=== PATIENT | female | born 1970 | race Caucasian/White ===

== ENCOUNTER 2022-06-05 11:45 | Observation (INO) | payer OTHER, SELFPAY ==
[2022-06-05] VITALS (36 sets, daily range): BP systolic 122–135; BP diastolic 64–88; PULSE 65–96; RESP 13–32; TEMP 35.9–36.6; O2SAT 94–100
--- NOTE | ~2022-06-05 | XR_ITS ---
EXAMINATION: XR chest 1V portable 06/05/2022 12:40 INDICATION: Cough and wheezing PROCEDURE: AP portable chest COMPARISON: 04/27/2022 FINDINGS: The lungs are clear. The cardiomediastinal silhouette is within normal limits. There are no pleural effusions. There is no pneumothorax suspected. IMPRESSION: 1: NO ACUTE CARDIOPULMONARY DISEASE. Reviewed, dictated and finalized at location A.
--- NOTE | 2022-06-05 11:53 | ECG_ITS ---
Measurements Intervals [place] Rate: 67 P: 49 ND: 136 QRS: 52 QRSD: 106 T: 13 QT: 380 QTc: 401 Interpretive Statements SINUS RHYTHM NO PREVIOUS ECG AVAILABLE FOR COMPARISON Electronically Signed On 06-06-2022 11:24:14 CDT by Padmini Lewis M.D.
--- NOTE | 2022-06-05 11:58 | ED.GENADULT ---
HPI - General Adult General Chief complaint: Shortness of Breath/Dyspnea Stated complaint: cough Time Seen by Provider: 06/05/22 11:49 Source: RN notes reviewed History of Present Illness HPI narrative: Patient presents emergency room from home for shortness of breath. Patient states she has been short of breath for the past 3 days states has been associate with a cough this been nonproductive. Patient states she has a history of COPD and is noted that she has been wheezing she states that she still does smoke cigarettes she denies any fevers or chills chest pain abdominal pain nausea or vomiting. States she went to another ER 2 days ago did not have a chest x-ray at that time was discharged and had gone to urgent care yesterday and was started on prednisone and Z-Judah which she is taken a dose of with minimal relief Related Data Home Medications Medication Instructions Recorded Confirmed aspirin 81 mg chewable tablet 81 mg PO DAILY 12/30/21 atorvastatin 40 mg tablet 40 mg PO DAILY 12/30/21 celecoxib 200 mg capsule 200 mg PO DAILY 12/30/21 multivitamin 1 tablet PO DAILY 12/30/21 Allergies Allergy/AdvReac Type Severity Reaction Status Date / Time meperidine [From Demerol] Allergy Severe swelling Verified 06/05/22 11:51 Review of Systems Review of Systems: Gen.: Denies fevers or chills ENT: Denies congestion Respiratory: See HPI CV: Denies chest pain or palpitations GI: Denies abdominal pain nausea, emesis or diarrhea Musculoskeletal: Denies back pain or muscle pain Neuro: Denies numbness, tingling, weakness or focal weakness Skin: Denies rash Except as documented, all other systems reviewed and negative [facility] Past Medical History Medical History (Updated 06/05/22 @ 15:57 by Marvin Resendiz DO) Cervical polyp COPD (chronic obstructive pulmonary disease) Encounter for prophylactic removal of fallopian tube ectopic Ovarian cyst Surgical History Surgical History History of dilation and curettage diagnostic hysteroscopy; D&C - Postmenopausal bleeding History of tubal ligation Hx of cholecystectomy Family History Family History Other Diabetes mellitus Hypertension Kidney disease Malignant tumor of cervix Malignant tumor of ovary Social History Social History (Reviewed 06/05/22 @ 13:23 by AMMY Muñoz Smoking packs per day: 1 Smoking cigarettes per day: 20.0 Smoking status: Current some day smoker Tobacco type: cigarettes Alcohol intake: never Substance use: never Substance use type: does not use Gender identity (if verbalized by the patient): Female Sexual Orientation (if Verbalized by the Patient): Straight or Heterosexual Spiritual care concerns: No Exam Narrative: APPEARANCE: No acute distress, nontoxic, resting in bed EYES: EOMI HEENT: Normocephalic, atraumatic, OMM RESPIRATORY: No respiratory distress wheezing throughout the bilateral lung fried with decreased breath sounds in the bases no rhonchi CARDIOVASCULAR: Regular rate and rhythm without murmurs rubs or gallops. ABDOMINAL: Soft, nontender, nondistended, no rebound or guarding MUSCULOSKELETAl: Moves all extremities. No clubbing, cyanosis or edema. NEURO: Awake and alert. Following commands, speech normal, no focal deficits SKIN:: Warm, dry. No rashes lesions or abrasions PSYCHIATRIC: Normal affect/mood, Course Course Emergency Course: Discussed with patient states she has been on azithromycin and prednisone for 2 days Following breathing treatments patient still continues have some wheezing throughout the lung fried will admit at this time as patient has failed outpatient treatment Cussed with AMILCAR Darnell for Dr. Manrique agrees with admission Discussed with patient and family results of workup and diagnosis. Discussed need for admission. Patient and family understand and agree
[2022-06-05] MEDS: ALBUTEROL SULFATE NEB 2.5 MG/3 ML INH 5 MG INHALATION ×3 (12:03→20:19)
[2022-06-05 12:04] LABS: Basophils Absolute Auto 0.1 K/mm3 (0.0-0.1); Basophils Percent Auto 0.6 % (0.2-1.2); Eosinophils Absolute Auto 0.1 K/mm3 (0-0.3); Hematocrit 45.1 % (37.0-47.0); Hemoglobin 15.1 g/dL (12.0-15.0); Immature Granulocyte Absolute 0.04 K/mm3 (0.00-0.031); Immature Granulocyte Percent A 0.4 % (0-0.5); Lymphocytes Absolute Auto 3.33 K/mm3 (0.9-3.2); Lymphocytes Percent Auto 30.2 % (18.3-44.2); Mean Corpuscular HGB Conc 33.5 g/dl (32-36); Mean Corpuscular Hemoglobin 32.7 pg (26-34); Mean Corpuscular Volume 97.6 fl (80-100); Mean Platelet Volume 8.9 fl (7.4-10.4); Monocytes Absolute Auto 0.9 K/mm3 (0.1-0.6); Monocytes Percent Auto 8.2 % (2.6-8.5); Neutrophils Absolute Auto 6.6 K/mm3 (1.3-6.7); Neutrophils Percent Auto 59.6 % (45.5-73.1); Platelet Count Result 230 k/mm3 (150-375); Red Blood Count 4.62 M/mm3 (4.2-5.4); Red Cell Distribution Width 13.2 % (11.5-14.5)
[2022-06-05] MEDS: IPRATROPIUM BR 0.02% INH SOLN 0.5 MG/2.5 ML VIAL INHALATION ×3 (12:04→20:19)
[2022-06-05] MEDS: methylPREDNISolone SOD SUCC 125 MG VIAL IV PUSH (12:05)
[2022-06-05 12:14] LABS: Alanine Aminotransferase 35 U/L (6-35); Albumin Level 4.3 g/dL (3.5-5.1); Alkaline Phosphatase 100 U/L (38-126); Anion Gap 7 mmol/L (8-16); Aspartate Amino Transferase 31 U/L (14-36); Bilirubin,Total 0.4 mg/dL (0.2-1.3); Blood Urea Nitrogen 13 mg/dL (7-17); Calcium 9.3 mg/dL (8.4-10.2); Carbon Dioxide 29 mmol/L (22-30); Chloride 104 mmol/L (98-107); Estimated CRCL calculation 77 ml/min; Estimated Glomerular Filt Rate > 60; Glucose 120 mg/dL (65-110); Potassium 3.9 mmol/L (3.4-5.0); Sodium 140 mmol/L (137-145)
[2022-06-05 15:13] LABS: SARS-CoV-2 RNA PCR Negative
--- NOTE | 2022-06-05 17:00 | PM.IMHP ---
H&P: HPI History of Present Illness Date/Time: 06/05/22 17:00 Chief Complaint: Shortness of breath. Narrative: This is a 51-year-old female smoker with COPD who presented to the ED for evaluation of shortness of breath. She is not on inhalers at home and is typically able to do every day-to-day activities without much issue with regards to her breathing. Over the last 3 days however she has developed a nonproductive cough, wheezing, and progressive dyspnea on lesser and lesser exertion. Her chest feels tight, as though she cannot get in a deep breath. She also endorses frontal headache, sinus congestion, occasional rhinorrhea, and mild sore throat. Several days ago she was prescribed azithromycin started on a prednisone taper though unfortunately her symptoms have not improved and she came in today for evaluation. She was afebrile on arrival to the ED in her workup has really been unremarkable. She was given a dose of IV Solu-Medrol and DuoNebs with some improvement however she continues to wheeze and she is being admitted in this setting for COPD exacerbation. Her is also smoker and he has had similar symptoms. She has not had any known exposure to COVID. She is not on inhalers at home and does not have a nebulizer at home. No fever, chills, or sweats. No nausea, vomiting, or diarrhea. No exertional chest pain, pleuritic pain, or lower extremity edema. Review of Systems Review of Systems: Twelve systems were reviewed and are negative except for as per HPI. [facility] Past Medical History Medical History (Updated 06/05/22 @ 21:12 by Carie Campos PA-C) Chronic obstructive pulmonary disease Ovarian cyst Tobacco dependence Surgical History Surgical History (Updated 06/05/22 @ 16:26 by Carie Campos PA-C) History of cholecystectomy History of dilation and curettage Diagnostic hysteroscopy and D&C for post-menopausal bleeding- benign cervical polyp. History of salpingectomy For ectopic . History of tubal ligation Family History Family History Other Diabetes mellitus Hypertension Kidney disease Malignant tumor of cervix Malignant tumor of ovary Social History Social History (Updated 06/05/22 @ 21:10 by Carie Campos PA-C) Social History: Surrogate decision maker: Trip Staples, spouse. Code status: Full code. Smoking packs per day: 1 Smoking cigarettes per day: 20.0 Years smoked: 31 Smoking pack-years: 31.00 Smoking status: Current every day smoker Tobacco type: cigarettes Alcohol intake: never Substance use: never Substance use type: does not use Spiritual care concerns: No Meds Home Medications and Allergies Home Medications Medication Instructions Recorded Confirmed Type aspirin 81 mg chewable tablet 81 mg PO DAILY 12/30/21 06/05/22 History atorvastatin 40 mg tablet 40 mg PO DAILY 12/30/21 06/05/22 History celecoxib 200 mg capsule 200 mg PO DAILY 12/30/21 06/05/22 History multivitamin 1 tablet PO DAILY 12/30/21 06/05/22 History Allergies Allergy/AdvReac Type Severity Reaction Status Date / Time meperidine [From Demerol] Allergy Severe swelling Verified 06/05/22 17:36 Vital Signs Vital Signs - 24 hr 06/05/22 11:48 06/05/22 11:52 06/05/22 12:00 Temperature 97.8 F Pulse Rate 79 90 77 Respiratory Rate 26 H 18 Blood Pressure 129/88 Pulse Oximetry 99 Oxygen Delivery Room Air 06/05/22 12:10 06/05/22 13:18 06/05/22 11:56 Temperature Pulse Rate 73 72 Respiratory Rate 16 20 Blood Pressure Pulse Oximetry 97 99 Oxygen Delivery Room Air 06/05/22 12:00 06/05/22 12:03 06/05/22 12:15 Temperature Pulse Rate 69 68 76 Respiratory Rate 26 H 29 H 17 Blood Pressure 132/78 Pulse Oximetry 98 100 99 Oxygen Delivery 06/05/22 12:17 06/05/22 12:30 06/05/22 12:32 Temperature Pulse Rate 96 85 76 Respiratory Rate 32 H 25 H 16 Blood Press
--- NOTE | 2022-06-05 17:33 | ADMGEN ---
This patient, Ara Staples, was admitted to 2 Medical Room 241-01. Patient/family oriented to hospital policies and general routines including ID bracelet, bed and alarms, visiting hours, pain management, procedures, bathroom and other care routines, personal items, smoking policy, room service/diet, and visiting hours. Information on how to activate the Rapid Response Team has been discussed. Patient/Family are encouraged to report perceived risks to care and to ask questions if they do not understand what they are told or what they should do.
[2022-06-05] MEDS: methylPREDNISolone SOD SUCC 125 MG VIAL 60 MG IV PUSH (21:44)
[2022-06-06] VITALS (7 sets, daily range): BP systolic 110–115; BP diastolic 60–66; PULSE 63–72; RESP 16–20; TEMP 36.6–36.7; O2SAT 95
--- NOTE | 2022-06-06 | ECHO_ITS ---
Patient Info Name: Ara Staples Age: 51 years : 1970 Gender: Female Ht: 66 in Wt: 222 lbs BSA: 2.21 m2 HR: 67 bpm BP: 110 / 60 mmHg Heart Rhythm: Sinus Rhythm Technical Quality: Fair Exam Date: 06/06/2022 4:04 PM Exam Location: [facility] Patient Status: Outpatient Admit Date: 06/05/2022 Staff Ordering Physician: Iván Elena Freelance Graphic Designer: Ana Louis RDCS Attending Provider: Tommie Ferraro MD Referring Physician: Ulices CALVILLO; Exam Type: CA echo doppler color flow Study Info Indications - bilateral lower extremity edema Complete two-dimensional, color flow and Doppler transthoracic echocardiogram is performed. Summary 1. Complete two-dimensional, color flow and Doppler transthoracic echocardiogram is performed. 2. Left ventricular systolic function is normal, estimated at 65-70%. 3. Right ventricular systolic function is normal. 4. No significant valvular disease. Left Ventricle Left ventricular chamber dimension is normal. Left ventricular systolic function is normal, estimated at 65-70%. There is no increased left ventricular wall thickness. The left ventricular diastolic function is normal. Right Ventricle Right ventricular chamber dimension is normal. Right ventricular systolic function is normal. Left Atria Left atrial chamber dimension is normal. Right Atria Right atrial chamber dimension is normal. Atrial Septum Intact interatrial septum visualized by color flow imaging. Aortic Valve The aortic valve is not well visualized. There is mild aortic valve sclerosis. There is no aortic valve stenosis. There is no aortic valve regurgitation. Pulmonic Valve The pulmonic valve is not well visualized. There is trace pulmonic regurgitation. Mitral Valve The mitral valve has normal leaflets. There is no mitral valve stenosis. There is no mitral valve regurgitation. Tricuspid Valve The tricuspid valve leaflets are not well visualized. There is mild tricuspid valve regurgitation. Pericardium/Pleural There is no pericardial effusion. Inferior Vena Cava Normal inferior vena cava with >50% collapse upon inspiration consistent with Empty right atrial pressure, 3 mmHg. Aorta The aortic root size at the sinus of Valsalva is normal. Left Ventricular Outflow Tract Name Value Normal LVOT 2D LVOT Diameter 2.1 cm LVOT Doppler LVOT Peak Gradient 6 mmHg LVOT Mean Gradient 3 mmHg LVOT VTI 26 cm LVOT VTI/AV VTI Ratio 0.9 LVOT Stroke Volume 87 ml LVOT CO 5.7 l/min LVOT CI 2.6 l/min/m2 Pulmonic Valve Name Value Normal RVOT Doppler RVOT Peak Gradient
[2022-06-06] MEDS: ALBUTEROL SULFATE NEB 2.5 MG/3 ML INH 5 MG INHALATION ×3 (01:56→12:58)
[2022-06-06] MEDS: IPRATROPIUM BR 0.02% INH SOLN 0.5 MG/2.5 ML VIAL INHALATION ×3 (01:57→12:58)
[2022-06-06] MEDS: methylPREDNISolone SOD SUCC 125 MG VIAL 60 MG IV PUSH (05:02)
[2022-06-06 05:16] LABS: Basophils Percent Auto 0.2 % (0.2-1.2); Hematocrit 40.2 % (37.0-47.0); Hemoglobin 13.7 g/dL (12.0-15.0); Immature Granulocyte Absolute 0.12 K/mm3 (0.00-0.031); Immature Granulocyte Percent A 0.8 % (0-0.5); Lymphocytes Percent Auto 8.4 % (18.3-44.2); Mean Corpuscular HGB Conc 34.1 g/dl (32-36); Mean Corpuscular Hemoglobin 32.4 pg (26-34); Mean Platelet Volume 10.6 fl (7.4-10.4); Monocytes Absolute Auto 0.3 K/mm3 (0.1-0.6); Monocytes Percent Auto 2.1 % (2.6-8.5); Neutrophils Absolute Auto 12.7 K/mm3 (1.3-6.7); Neutrophils Percent Auto 88.5 % (45.5-73.1); Platelet Count Result 222 k/mm3 (150-375); Red Blood Count 4.23 M/mm3 (4.2-5.4); White Blood Count 14.4 K/mm3 (4.5-10.0)
[2022-06-06 05:30] LABS: Anion Gap 10 mmol/L (8-16); Blood Urea Nitrogen 20 mg/dL (7-17); Calcium 8.9 mg/dL (8.4-10.2); Carbon Dioxide 27 mmol/L (22-30); Chloride 101 mmol/L (98-107); Estimated CRCL calculation 98 ml/min; Estimated Glomerular Filt Rate > 60; Glucose 146 mg/dL (65-110); Potassium 4.4 mmol/L (3.4-5.0); Sodium 138 mmol/L (137-145)
--- NOTE | 2022-06-06 06:56 | PM.IMPN ---
Progress Note: A&P Assessment and Plan (1) COPD exacerbation: Code(s): J44.1 - Chronic obstructive pulmonary disease with (acute) exacerbation Status: Acute Assessment and Plan: Reports cough, wheezes and shortness of breath Chest xray does not appear to have infection Solumedrol titrated down to 40mg IV BID Smoking education Neb treatments (2) Upper respiratory infection: Code(s): J06.9 - Acute upper respiratory infection, unspecified Status: Acute Assessment and Plan: Continue azithromycin No evidence of pneumonia on chest x-ray SARS-CoV-2 by PCR was negative. WBC elevated at 14.4, however, could be trending up from the steroids Continue to trend labs (3) Tobacco dependence: Code(s): F17.200 - Nicotine dependence, unspecified, uncomplicated Status: Acute Assessment and Plan: Smoking cessation is imperative in was discussed. Unfortunately her is also a smoker and neither of them seem motivated. She declines the need for nicotine patch at this time. Time Spent With Patient Time with patient: Greater than 35 minutes Subjective Date/time seen: 06/06/22 Interval history: 06/06/22 06/05/22? 17:00 This is a 51-year-old female smoker with COPD who presented to the ED for evaluation of shortness of breath. She is not on inhalers at home and is typically able to do every day-to-day activities without much issue with regards to her breathing.? Over the last 3 days however she has developed a nonproductive cough, wheezing, and progressive dyspnea on lesser and lesser exertion. Her chest feels tight, as though she cannot get in a deep breath. She also endorses frontal headache, sinus congestion, occasional rhinorrhea, and mild sore throat. Several days ago she was prescribed azithromycin started on a prednisone taper though unfortunately her symptoms have not improved and she came in today for evaluation. She was afebrile on arrival to the ED in her workup has really been unremarkable.? She was given a dose of IV Solu-Medrol and DuoNebs with some improvement however she continues to wheeze and she is being admitted in this setting for COPD exacerbation. Her is also smoker and he has had similar symptoms. She has not had any known exposure to COVID. She is not on inhalers at home and does not have a nebulizer at home. No fever, chills, or sweats. No nausea, vomiting, or diarrhea. No exertional chest pain, pleuritic pain, or lower extremity edema. Review of Systems Review of Systems: All systems reviewed & are unremarkable except as noted in HPI and below Exam Const: General: cooperative, healthy appearing, no acute distress, well developed, alert, awake and well nourished Nutritional Appearance: well nourished Orientation/consciousness: patient oriented x3 Limitations: no limitations HENMT: Head: normal to inspection Ears: hearing grossly normal bilaterally Face/Nose/Sinus: Normal external nose present Mouth: Yes Normal oral and palatal mucosa present, Yes lip normal and Yes tongue normal Teeth and gingiva: abnormal tooth and associated gingiva and poor dentition Eyes: General: appearance normal, both eyes and all related structures Neck: Neck: normal visual inspection, full ROM, trachea midline and supple Chest: Chest palpation & inspection: normal inspection of the chest Resp: Effort & Inspection: normal respiratory effort and able to speak in complete sentences Auscultation: clear to auscultation bilaterally Cardio: Jugular venous distension: no JVD Rate: regular rate Rhythm: regular rhythm Heart sounds: S1 normal heart sound present and S2 normal heart sound present Peripheral pulses: Peripheral pulses 2+ throughout GI: Inspection: normal to inspection GI Palp: Yes Soft to palpation and No Tenderness to palpation present (GI) Auscultation: normal bowel sounds Skin: General skin e
[2022-06-06] MEDS: ASPIRIN 81 MG CHEWABLE TABLET PO (09:15)
[2022-06-06] MEDS: AZITHROMYCIN 250 MG TABLET 500 MG PO (09:15)
[2022-06-06] MEDS: CELECOXIB 200 MG CAPSULE PO (09:16)
[2022-06-06] MEDS: MULTIVITAMINS THERAPEUTIC TAB (*BKC) 1 TABLET PO (09:16)
[2022-06-06] MEDS: ATORVASTATIN 40 MG TABLET PO (09:16)
--- NOTE | 2022-06-06 10:15 | PM.DS ---
DS: Admitting Diagnosis Discharge Date 06/06/22 1015 Admitting Diagnosis COPD exacerbation DS: Discharge Diagnosis Discharge Diagnosis (1) COPD exacerbation: Code(s): J44.1 - Chronic obstructive pulmonary disease with (acute) exacerbation Status: Acute Assessment and Plan: Reports cough, wheezes and shortness of breath Chest xray does not appear to have infection Solumedrol titrated down to 40mg IV BID Smoking education Neb treatments (2) Upper respiratory infection: Code(s): J06.9 - Acute upper respiratory infection, unspecified Status: Acute Assessment and Plan: Continue azithromycin No evidence of pneumonia on chest x-ray SARS-CoV-2 by PCR was negative. WBC elevated at 14.4, however, could be trending up from the steroids Continue to trend labs (3) Tobacco dependence: Code(s): F17.200 - Nicotine dependence, unspecified, uncomplicated Status: Acute Assessment and Plan: Smoking cessation is imperative in was discussed. Unfortunately her is also a smoker and neither of them seem motivated. She declines the need for nicotine patch at this time. (4) Fluid overload: Code(s): E87.70 - Fluid overload, unspecified Status: Acute Assessment and Plan: 2-3+ pitting edema Echo ordered BNP ordered Could be a component of CHF DS: Summary Hospital Course Hospital Course: Patient is a 51-year-old female with a past medical history of COPD, hyperlipidemia who presented to the ed with complaints of worsening shortness of breath. Patient stated that she has been unable to do her normal activities. She recently had been taking azithromycin and steroid with no relief of symptoms. However, her breathing continued to get worse. Upon admission she endorsed a cough with an increase in sputum production, increased wheezes and shortness of breath. Since admission she has been placed on azithromycin and steroids and is feeling better. She stated that her cough is better, and remains non-productive. Chest xray does not indicate any infection at this time. Labs did have an elevated white count, however, she has been on steroids. She is stating that she is feeling better and would like to go home. I have talked to her about getting patient safety coordinator and following up outpatient as she will likely need inhalers. 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 She does have 2-3+ pitting edema and stated that this comes and goes. Will get an echo at this time and have her follow up with her telephone operators supervisor for further instructions. Labs and vital signs are stable and patient is able to discharge. Will call and make her an appointment for a follow up with her primary provider. Time spent discussing smoking cessation with patient: more than 10 minutes Status at Discharge Functional status at discharge: independent ambulation Overall status at discharge: patient is progressing back to baseline Time Spent with Patient Time attestation: Total time spent providing and/or coordinating discharge services: 35 minutes Time spent: Greater than 30 minutes Specific discharge activities: Diagnostic testing, chart review, developing a treatment plan, education, care coordination documentation, physical exam, result review Exam Const: General: cooperative, healthy appearing, no acute distress, well developed, alert, awake and well nourished Nutritional Appearance: well nourished Orientation/consciousness: patient oriented x3 Limitations: no limitations HENMT: Head: normal to inspection Ears: hearing grossly normal bilaterally Face/Nose/Sinus: Normal external nose present Mouth: Yes Normal oral and palatal mucosa present, Yes lip normal and Yes tongue normal Teeth and gingiva: abnormal tooth and associated gingiva and poor dentition Eyes: General: appearance normal, both eyes and all relat
[2022-06-06] MEDS: FAMOTIDINE 20 MG TABLET PO (10:42)
[2022-06-06] MEDS: guaiFENesin/DEXTROMETHORPHAN 10 ML UDC PO (10:42)
[2022-06-06 13:33] LABS: NT Pro B Type Natriuretic Pept 571 pg/mL (5-100)
== END 2022-06-06 16:44 | disposition home or self-care (01) ==
LOC: ANHED 15:57 → ANH2MED 19:22
PROVIDERS: Physician Assistant; Admitting Provider Chiropractor; Emergency Provider Emergency Medicine; PCP Physician Assistant; Visit Provider Nurse Practitioner
DX: J44.1 Chronic obstructive pulmonary disease with (acute) exacerbation (principal); J06.9 Acute upper respiratory infection, unspecified; E87.70 Fluid overload, unspecified; Z79.82 Long term (current) use of aspirin; F17.210 Nicotine dependence, cigarettes, uncomplicated; Z20.822 Contact with and (suspected) exposure to COVID-19
CPT/HCPCS: 36415; 71045; 80048; 80053; 83880; 85025; 87070; 87077; 87081; 87205; 87880; 93005; 93306; 94640; 96374; 96376; 99285; A9270; C9803; G0378; G0379; J2930; U0003; U0005